=== PATIENT | male | born 1970 | race Two or more races ===

== ENCOUNTER 2017-04-01 13:34 | Inpatient (IN) | payer MEDICAID ==
[~2017-04-01] VITALS: Ht 170.2 cm; Wt 72.6 kg
[2017-04-01] MEDS ORDERED: NKM (13:37)
[2017-04-01] MEDS ORDERED: Norco 5mg/325mg tab ORAL ONE (14:00)
[2017-04-01] MEDS ORDERED: Morphine Sulfate 4mg/ml Inj IVP ONE (14:45)
--- NOTE | 2017-04-01 15:11 | Diagnostic Imaging Report ---
Indications: Fall from ladder, right hip/thigh injury and pain Technique: 2 views right thigh Findings: Comparison: None Is a comminuted fracture involving the intertrochanteric region of the right femur, mildly displaced. No underlying lytic destructive process. Significant amount of linear artifact overlies the pelvis. No dislocation, joint space widening, or other acute change identified. IMPRESSION: Right femoral intertrochanteric fracture Additional nondisplaced pelvic fractures not excludable, due to artifact described
[2017-04-01 15:15] VITALS: BP 127/81
--- NOTE | 2017-04-01 15:24 | Diagnostic Imaging Report ---
Indications: Fall from ladder, right hip trauma and pain Technique: Continuous helical CT imaging of the pelvis was performed with automatic exposure control on a Siemens sensation [address] scanner. Axial, coronal, sagittal images reconstructed at 3 mm slice thickness. CTDI volume(s): 10 mGy Total DLP: 284 mGy-cm Findings: Comparison: Right thigh radiographs performed earlier today There is a comminuted fracture of involving the intertrochanteric region of the right femur with mild displacement of multiple fragments. No underlying lytic destructive process demonstrated. Surrounding soft tissues are mildly swollen. No additional fracture, dislocation, joint space widening, soft tissue gas or hematoma, or other acute change identified. The L5 vertebra demonstrates bilateral pars interarticularis defects. The L5-S1 disc space demonstrates annular bulge with marginal osteophyte formation and discogenic sclerosis. The L4-5 and L5-S1 facet joints are sclerotic and hypertrophied. Bilateral sacroiliac joints demonstrate marginal irregularity and sclerosis. The wall of the urinary bladder appears mildly thickened. Small left inguinal hernia contains only fat. IMPRESSION: Right femoral intertrochanteric fracture as described No other evidence of acute injury Degenerative spondylosis L5 bilateral spondylolysis. No associated spondylolisthesis. Bilateral sacroiliac arthropathy, nonspecific. Consider degenerative arthropathy, seronegative spondyloarthropathies Small fat-containing left inguinal hernia
[2017-04-01 15:39] LABS: BASOPHILS % (AUTO) 0.7 % (0.0-2.0); EOSINOPHILS % (AUTO) 0.8 % (0.0-3.0); INR 0.9 (0.9-1.1); LYMPHOCYTES % (AUTO) 13.4 % (20.0-45.0); MEAN CORPUSCULAR HEMOGLOBIN 28.6 PG (27.0-31.0); MEAN CORPUSCULAR HGB CONC 32.7 G/DL (32.0-36.0); MEAN CORPUSCULAR VOLUME 88 FL (80-99); MEAN PLATELET VOLUME 7.7 FL (6.5-10.1); MONOCYTES % (AUTO) 7.4 % (1.0-10.0); NEUTROPHILS % (AUTO) 77.7 % (45.0-75.0); PLATELET COUNT 262 K/UL (150-450); PROTHROMBIN TIME 9.8 SEC (9.30-11.50); RED BLOOD COUNT 5.39 M/UL (4.70-6.10); RED CELL DISTRIBUTION WIDTH 12.3 % (11.6-14.8); WHITE BLOOD COUNT 15.2 K/UL (4.8-10.8)
[2017-04-01 15:45] LABS: ALANINE AMINOTRANSFERASE 22 U/L (3-41); ALBUMIN/GLOBULIN RATIO 0.9 (1.0-2.7); ANION GAP 18 (5-15); ASPARTATE AMINO TRANSFERASE 31 U/L (5-40); CALCIUM 8.6 mg/dL (8.6-10.2); CARBON DIOXIDE 22 mEQ/L (20-30); CHLORIDE 96 mEQ/L (98-107); CREATININE 0.7 mg/dL (0.7-1.2); GLOMERULAR FILTRATION RATE > 60 mL/min (>60); HEMOLYSIS 2; POTASSIUM 3.9 mEQ/L (3.4-4.9); SODIUM 136 mEQ/L (135-145); TOTAL PROTEIN 7.9 g/dL (6.6-8.7)
--- NOTE | 2017-04-01 16:19 | Consultation ---
Consult Note Consult Note patient seen/evaluated. Right Hip Fracture (IT) Plan on ORIF tomorrow afternoon. NPO/Consent obtained from the patient and EKG/PT/PTT/CBC/Chest Xray ordered thank you RAUDEL HAM Apr 01, 2017 16:19
[2017-04-01] MEDS ORDERED: ceFAZolin sod 1 GM in D5W 55 ML IV ONE (16:30)
[2017-04-01] MEDS ORDERED: NS 55 ML IV ONE (16:45)
[2017-04-01] MEDS ORDERED: Tubing IV Cassette IV ONE (16:45)
--- NOTE | 2017-04-01 17:18 | Diagnostic Imaging Report ---
Indication: Shortness of breath Technique: Single portable AP view of the chest. Findings: Comparison: None. The bones and extra pulmonary soft tissues, cardiomediastinal silhouette, pulmonary vasculature and parenchyma, and pleural surfaces are unremarkable. IMPRESSION: Negative portable AP chest.
--- NOTE | 2017-04-01 17:53 | Emergency Room Report ---
History of Present Illness General Chief Complaint: Multiple Trauma/Fall Source: EMS Present Illness HPI 46-year-old M presents to ED complaining of right hip pain. Patient states he had a fall from a ladder today. Approximately 5 feet high. End on his right side. Denies hitting his head or LOC. Patient is here complaining of right hip pain. 10 out of 10. Sharp. Nonradiating. Unable to bear weight. No other aggravating or relieving factors. Denies any other associated symptoms Allergies: Coded Allergies: No Known Allergies (Unverified , 04/01/17) Patient History Past Medical History: none Past Surgical History: none Pertinent Family History: none Social History: Denies: alcohol use, drug use, smoking Immunizations: UTD Reviewed Nursing Documentation: PMH: Agreed, PSxH: Agreed Nursing Documentation-PMH Past Medical History: No Stated History Review of Systems All Other Systems: negative except mentioned in HPI Physical Exam Vital Signs Date Time Temp Pulse Resp B/P Pulse Ox O2 Delivery O2 Flow Rate FiO2 04/01/17 13:33 98.2 100 18 138/88 100 Room Air Sp02 EP Interpretation: reviewed, normal General Appearance: no apparent distress, alert, GCS 15, non-toxic Head: normocephalic Eyes: bilateral eye PERRL, bilateral eye normal inspection ENT: normal ENT inspection Neck: normal inspection Respiratory: normal inspection Cardiovascular #1: normal inspection Gastrointestinal: normal inspection Rectal: deferred Genitourinary: no CVA tenderness Musculoskeletal: decreased range of motion, tender - R hip Neurologic: alert, oriented x3, responsive, motor strength/tone normal, sensory intact, speech normal Psychiatric: normal inspection Skin: normal inspection Lymphatic: normal inspection Medical Decision Making Diagnostic Impression: Primary Impression: Intertrochanteric fracture of right hip Qualified Codes: S72.141A - Displaced intertrochanteric fracture of right femur, initial encounter for closed fracture Additional Impression: Fall from ladder Qualified Codes: W11.XXXA - Fall on and from ladder, initial encounter ER Course Hospital Course 46-year-old male presents to ED with R hip pain s/p fall from ladder Differential diagnoses include: fracture, dislocation, contusion Clinical course Patient placed on stretcher. After initial history and physical I ordered labs , pain medication and imaging studies Labs reviewed-mild leukocytosis noted, electrolytes okay, hemoglobin/hematocrit okay Femur x-ray shows R intertrochanteric fracture CT Pelvis shows R intertrochanteric fx EKG - NSR, no acute changes interpreted by me Case discussed with Dr. Mason who agreed to consult on this case. Case discussed with Dr. Jung who agreed to accept the patient to his service for further care and support i. I feel this is a highly complex case requiring extensive working including EKG/Rhythm strip, Xray/CT/US, Blood/urine lab work, repeat exams while in ED, and administration of strong opiates/narcotics for pain control, admission to hospital or close patient follow up. Diagnosis - intertrochanteric fracture, fall from ladder Admitted to floor in serious condition Labs Test 04/01/17 15:00 White Blood Count 15.2 K/UL (4.8-10.8) Red Blood Count 5.39 M/UL (4.70-6.10) Hemoglobin 15.4 G/DL (14.2-18.0) Hematocrit 47.2 % (42.0-52.0) Mean Corpuscular Volume 88 FL (80-99) Mean Corpuscular Hemoglobin 28.6 PG (27.0-31.0) Mean Corpuscular Hemoglobin Concent 32.7 G/DL (32.0-36.0) Red Cell Distribution Width 12.3 % (11.6-14.8) Platelet Count 262 K/UL (150-450) Mean Platelet Volume 7.7 FL (6.5-10.1) Neutrophils (%) (Auto) 77.7 % (45.0-75.0) Lymphocytes (%) (Auto) 13.4 % (20.0-45.0) Monocytes (%) (Auto) 7.4 % (1.0-10.0) Eosinophils (%) (Auto) 0.8 % (0.0-3.0) Basophils (%) (Auto) 0.7 % (0.0-2.0) Prothrombin Time 9.8 SEC (9.30-11.50) Prothromb Time International Ratio 0.9 (0.9-1.1) Activated Partial Thromboplast Time 28 SEC (23-33) Sodium Level 136 mEQ/L (135-145) Potassium Level 3.9 mEQ/L (3.4-4.9) Chloride Level 96 mEQ/L (98-107) Carbon Dioxide Level 22 mEQ/L (20-30) Anion Gap 18 (5-15) Blood Urea Nitrogen 5 mg/dL (7-23) Creatinine 0.7 mg/dL (0.7-1.2) Estimat Glomerular Filtration Rate > 60 mL/min (>60) Glucose Level 116 mg/dL (74-106) Calcium Level 8.6 mg/dL (8.6-10.2) Total Bilirubin 0.4 mg/dL (0.0-1.2) Aspartate Amino Transf (AST/SGOT) 31 U/L (5-40) Alanine Aminotransferase (ALT/SGPT) 22 U/L (3-41) Alkaline Phosphatase 126 U/L (40-129) Total Protein 7.9 g/dL (6.6-8.7) Albumin 3.9 g/dL (3.5-5.2) Globulin 4.0 g/dL Albumin/Globulin Ratio 0.9 (1.0-2.7) EKG Diagnostic Results Rate: normal Rhythm: NSR ST Segments: no acute changes ASA given to the pt in ED: No Rhythm Strip Diag. Results EP Interpretation: yes Rhythm: NSR, no PVC's, no ectopy Other X-Ray Diagnostic Results # of Views/Limited Vs Complete: 3 View Interpretation: no dislocation, other - R intertrochanteric fx, no dislocation Indication: Pain Impression: Other - R intertrochanteric fx Date Electronically Signed: Apr 01, 2017 Time Electronically Signed: 17:50 Interpreting ER Physician: Guy Street mD CT/MRI/US Diagnostic Results CT/MRI/US Diagnostic Results : Imaging Test Ordered: CT Pelvis Impression R intertrochanteric fx Last Vital Signs Date Time Temp Pulse Resp B/P Pulse Ox O2 Delivery O2 Flow Rate FiO2 04/01/17 17:27 98.2 64 16 127/81 98 Room Air Status: improved Disposition: ADMITTED INPATIENT Condition: Serious Referrals: NOT CHOSEN IPA/,REFERRING (PCP) GYU STREET M.D. Apr 01, 2017 17:53
[2017-04-01 18:29] VITALS: BP 136/91
--- NOTE | 2017-04-01 18:45 | Consultation ---
DATE OF CONSULTATION: 04/01/2017 ORTHOPEDIC CONSULTATION CONSULTING PHYSICIAN: Liban Gregory M.D. REFERRING PHYSICIAN: Livier Jung M.D. REASON FOR CONSULTATION: Right hip fracture. BRIEF HISTORY: The patient is a pleasant 46-year-old gentleman who was up on the ladder at home. He was trying to put some shades up for his kids that were playing outside. He fell down and landed on his right hip. He did not hit his head. There was no loss of consciousness. He was admitted to [facility]. X-ray showed a comminuted right hip intertrochanteric fracture. A CT of the pelvis was obtained, which did not show any other fracture. An orthopedic consultation was obtained. PAST MEDICAL HISTORY: Significant for none. PAST SURGICAL HISTORY: He has had some finger lacerations for which he had surgery on the left side. He has been functional. ALLERGIES: No known drug allergies. SOCIAL HISTORY: He does smoke marijuana occasionally and he drinks about 3 or 4 beers a day. He lives in a single story with 2 or 3 stairs to get into. He has a supportive . FAMILY HISTORY: Noncontributory. ANESTHESIA DIFFICULTIES: None. PHYSICAL EXAMINATION: GENERAL: Physical examination of the patient does reveal a pleasant gentleman, cooperative with examination. EXTREMITIES: Examination of the right hip revealed that he has got significant pain. His leg is slightly shortened and externally rotated. He has got tenderness over the area. He has got no tenderness over the spine. He has no tenderness over the neck. He is alert and oriented. His is at bedside. DIAGNOSTIC DATA: X-rays of the right hip and femur are reviewed. There is evidence of right comminuted intertrochanteric fracture. CT of the pelvis reviewed. There is a right intertrochanteric fracture. There is no other additional pelvic fracture that could be seen. IMPRESSION: Right hip intertrochanteric fracture in a 46-year-old gentleman after a mechanical fall. PLAN: Open reduction and internal fixation with a short gamma nail. Risks, benefits, and complications of surgery were discussed with him. Risks of infection, bleeding, and neurovascular complication were discussed with them. He understands the risks of surgery and complications of surgery, and would like to proceed with it. All questions were answered. We will go ahead and proceed once we have time in the OR. Liban Gregory M.D. DR: MEEK JOB#: [id number] CC:
[2017-04-01 20:00] VITALS: BP 128/76
[2017-04-02] VITALS (13 sets, daily range): BP systolic 100–136; BP diastolic 69–80
[2017-04-02] MEDS ORDERED: Morphine Sulfate PF 10 ML ONE (15:53)
[2017-04-02] MEDS ORDERED: Bupivacaine 0.5% Inj 30 ml vial INJ ONE (15:54)
--- NOTE | 2017-04-02 16:03 | Anethesia Preoperative Eval ---
Anesthesia Pre-op PMH/ROS General Date of Evaluation: Apr 02, 2017 Time of Evaluation: 16:46 Anesthesiologist: Nikos ASA Score: ASA 2 Mallampati Score Class I : Soft palate, uvula, fauces, pillars visible Class II: Soft palate, uvula, fauces visible Class III: Soft palate, base of uvula visible Class IV: Only hard plate visible Mallampati Classification: Class II Surgeon: Colt Diagnosis: R Hip Fx Surgical Procedure: ORIF R Hip Anesthesia History: none Social History: current smoker Family History: no anesthesia problems Allergies: Coded Allergies: No Known Allergies (Unverified , 04/01/17) Medications: see eMAR Anesthesia Pre-op Phys. Exam Physician Exam Last Vital Signs Date Time Temp Pulse Resp B/P Pulse Ox O2 Delivery O2 Flow Rate FiO2 04/02/17 15:54 98.1 81 18 131/74 Room Air 04/02/17 11:18 97 Constitutional: NAD Neurologic: CN 2-12 intact Cardiovascular: RRR Respiratory: CTA Gastrointestinal: S/NT/ND Airway Exam Mallampati Score: Class II MO: full ROM: full Teeth: intact Anesthesia Pre-op A/P Risk Assessment & Plan Assessment: ASA 2 Plan: Spinal, GA, BIS Status Change Before Surgery: No Pre-Antibiotics Dru Gram Ancef IV Given Within 1 Hr of Incision: Yes Time Given: 17:04 Padilla Knott MD Apr 02, 2017 16:03
[2017-04-02] MEDS ORDERED: LR 1000ml 1,000 ML IVLG SCH (16:04)
--- NOTE | 2017-04-02 16:05 | Immediate Post-Op Evaluation ---
Immediate Post-Op Evalulation Immediate Post-Op Evalulation Procedure: ORIF R Hip Date of Evaluation: Apr 02, 2017 Time of Evaluation: 18:30 IV Fluids: 500 LR Blood Products: 0 Estimated Blood Loss: 50 Urinary Output: 300 Blood Pressure Systolic: 100 Blood Pressure Diastolic: 70 Pulse Rate: 94 Respiratory Rate: 16 O2 Sat by Pulse Oximetry: 100 Temperature (Fahrenheit): 97.2 Pain Score (1-10): 1 Nausea: No Vomiting: No Complications 0 Patient Status: awake, reacts, patent, extubated, none Hydration Status: adequate Dru Gram Ancef IV Given Within 1 Hr of Incision: Yes Time Given: 17:04 Padilla Knott MD Apr 02, 2017 16:05
[2017-04-02] MEDS ORDERED: DiphenhydrAMINE 50mg/ml Inj IVP PRN (16:15)
[2017-04-02] MEDS ORDERED: Ketorolac 60mg Inj IV PRN (16:15)
[2017-04-02] MEDS ORDERED: fentaNYL 100 mcg/2 mL IV PRN (16:15)
[2017-04-02] MEDS ORDERED: Hydromorphone 0.5mg/0.5ml inj IVP PRN (16:15)
[2017-04-02] MEDS ORDERED: LORazepam Inj 2mg/ml 1ml IV PRN (16:15)
[2017-04-02] MEDS ORDERED: Midazolam 2mg/2ml Inj IVP PRN (16:15)
[2017-04-02] MEDS ORDERED: Metoclopramide 10mg/2ml Inj IVP PRN (16:15)
[2017-04-02] MEDS ORDERED: Meperidine 25mg/0.5ml Inj IV PRN (16:15)
[2017-04-02] MEDS ORDERED: Norco 5mg/325mg tab ORAL PRN ×2 (16:15→17:30)
[2017-04-02] MEDS ORDERED: Norco 7.5mg/325mg tab ORAL PRN (16:15)
[2017-04-02] MEDS ORDERED: Atropine Inj 1mg/10ml Syr IV PRN (16:15)
[2017-04-02] MEDS ORDERED: Oxycodone/Acetaminophen 5-325 ORAL PRN (16:15)
[2017-04-02] MEDS ORDERED: Ketorolac 30mg Inj IV PRN (16:15)
[2017-04-02] MEDS ORDERED: Bacitracin 50000 Units Vial ONE (16:22)
[2017-04-02] MEDS ORDERED: LR 1000ml ONE (16:45)
[2017-04-02] MEDS ORDERED: Alfentanil 2ml Inj ONE (16:45)
[2017-04-02] MEDS ORDERED: Lidocaine 1% MPF 10mg/ml 5ml ONE (16:45)
[2017-04-02] MEDS ORDERED: NS Irrig 1000ml ONE (16:45)
[2017-04-02] MEDS ORDERED: Lidocaine 1% Plain 30 ml INJ ONE (16:45)
[2017-04-02] MEDS ORDERED: Sterile Water Irrig 1000ml IRRIG ONE (16:45)
[2017-04-02] MEDS ORDERED: Propofol 10mg/ml 20ml IV ONE (16:45)
--- NOTE | 2017-04-02 17:14 | Pre-Procedure Note/Attestation ---
Pre-Procedure Note/Attestation Complete Prior to Procedure Planned Procedure: right Procedure Narrative: rt hip orif Indications for Procedure Pre-Operative Diagnosis: rt hip fracture Attestation I attest that I discussed the nature of the procedure; its benefits; risks and complications; and alternatives (and the risks and benefits of such alternatives ), prior to the procedure, with the patient (or the patient's legal vendor representatives). I attest that, if there was a reasonable possibility of needing a blood transfusion, the patient (or the patient's legal vendor representatives) was given the [facility] standardized written summary, pursuant to the [place] Adolfo Blood Safety Act ([place] Health and Safety Code # 1645, as amended). I attest that I re-evaluated the patient just prior to the surgery and that there has been no change in the patient's H&P, except as documented below:NONE RAUDEL HAM Apr 02, 2017 17:14
[2017-04-02] MEDS ORDERED: Milk of Magnesia 30ml Ud ORAL PRN (17:30)
[2017-04-02] MEDS ORDERED: HYDROmorphone 1mg/ml Carpuject SUBQ PRN (17:30)
--- NOTE | 2017-04-02 18:02 | Brief Operative Note ---
Immediate Post Operative Note Operative Note Pre-op Diagnosis: rt hip fracture Procedure: Right hip ORIF with short gamma nail Post-op Diagnosis: same as pre-op Surgeon: tessa Applications Processor: Kandi Anesthesiologist: Bebo Anesthesia: regional Specimen: none Complications: none Condition: stable Estimated Blood Loss: volume - 100cc Drains: none Implant(s) used?: Yes - Viviana Gamma Nail RAUDEL HAM Apr 02, 2017 18:02
--- NOTE | 2017-04-02 19:15 | Cardiology Progress Note ---
Assessment/Plan Assessment/Plan The patient is seen and examined, full consult note will be dictated. Objective Last 24 Hour Vital Signs Date Time Temp Pulse Resp B/P Pulse Ox O2 Delivery O2 Flow Rate FiO2 04/02/17 18:50 84 19 120/80 99 Room Air 04/02/17 18:40 82 17 117/76 100 Simple Mask 04/02/17 18:30 90 20 104/72 99 Simple Mask 04/02/17 18:22 94 16 100 04/02/17 18:20 97.2 94 16 100/70 100 Simple Mask 04/02/17 15:54 98.1 81 18 131/74 Room Air 04/02/17 11:18 98.1 78 19 129/78 97 Room Air 04/02/17 09:36 97.9 04/02/17 08:10 97.9 69 18 121/75 96 Room Air 04/02/17 04:00 98.1 65 18 136/80 97 Room Air 04/02/17 00:00 97.9 69 16 119/72 95 Room Air 04/01/17 20:00 98.2 73 18 128/76 95 Room Air Intake and Output 04/01/17 04/02/17 19:00 07:00 Intake Total 75 ml 875 ml Output Total 950 ml Balance 75 ml -75 ml Intake IV Total 75 ml 875 ml Output Urine Total 950 ml JAMEY WONG Apr 02, 2017 19:15
[2017-04-02] MEDS ORDERED: D5 1/2NS w/KCl 20mEq 1,000 ML IV SCH (21:00)
[2017-04-02] MEDS: oxyCONTIN 20mg tab ORAL SCH (21:14)
[2017-04-02] MEDS: Docusate 100mg cap ORAL SCH (21:14)
--- NOTE | 2017-04-02 22:30 | History and Physical Report ---
DATE OF ADMISSION: 04/01/2017 HISTORY OF PRESENT ILLNESS: The patient comes in status post fall with right femur fracture, fall from a ladder. The patient denies shortness of breath. Denies chest pain. Denies nausea, vomiting or diarrhea. Denies fever or chills. Denies cough. Denies headache. Denies any diarrhea. Denies any rectal bleeding. He does have a heartburn. Denies fever or chills. Denies hemoptysis. Denies any medical problems. Also, the patient complained of right hip pain as well as complains of right knee pain. This is from that fall from the ladder. PAST MEDICAL HISTORY: None. PAST SURGICAL HISTORY: Finger surgery. MEDICATIONS: None. ALLERGIES: None. SOCIAL HISTORY: The patient has a history of smoking and history of drug abuse. No history of alcohol abuse. FAMILY HISTORY: Noncontributory. REVIEW OF SYSTEMS: HEENT: Denies headache. Respiratory: Denies shortness of breath. Denies cough. Cardiovascular: Denies chest pain. Gastrointestinal: Denies nausea, vomiting, or diarrhea. Extremities: He does have pain in the right femur as well as right knee. Central Nervous System: Denies change in vision or speech pattern. PHYSICAL EXAMINATION: VITAL SIGNS: stable. HEENT: PERRLA. NECK: Supple. No lymphadenopathy. CHEST: Clear to auscultation. GASTROINTESTINAL: Soft, nontender, and nondistended. No organomegaly. EXTREMITIES: No edema. Moves all four extremities except decreased range of motion on the right hip due to pain. NEUROLOGIC: Cranial nerves II through XII are intact. Oriented x3. LABORATORY AND DIAGNOSTIC DATA: Labs are significant for WBC of of 15. ASSESSMENT AND PLAN: 1. Leukocytosis, could be due to fracture. 2. Status post right hip fracture. I have asked Dr. Sousa to see the patient for leukocytosis and Dr. William will be in-charge of clearing for surgery and Dr. Rodriguez also seen the patient for possible dehydration. Livier Jung M.D. DR: FRAN JOB#: [id number] CC:
[2017-04-03] VITALS: BP 115/66
--- NOTE | 2017-04-03 00:15 | Operative Note - Dictated ---
DATE OF OPERATION: 04/02/2017 PREOPERATIVE DIAGNOSIS: Right hip comminuted intertrochanteric fracture. POSTOPERATIVE DIAGNOSIS: Right hip comminuted intertrochanteric fracture. PROCEDURE: Right hip open reduction and internal fixation using a short 125-degree gamma nail. SURGEON: Liban Gregory M.D. GO CART MECHANIC: Julio Schroeder ANESTHESIA: Spinal anesthesia by Dr. Knott. ANESTHESIOLOGIST: Padilla Knott M.D. EBL: Less than 100 mL. COMPLICATIONS: None. BRIEF HISTORY: The patient is a 46-year-old gentleman who sustained a fall from a ladder and landed on his right hip. He was seen in the ER and was noted to have a right hip comminuted intertrochanteric fracture. He was admitted after full discussion of risks and benefits of the surgery with the patient including risk of infection, bleeding, neurovascular complication, possibility of malunion and nonunion, possibility of need for further surgery, as well as other complications that may arise that are unforeseen and he opted for surgical treatment as described above. OPERATIVE PROCEDURE: The patient was brought to the operating table and was placed supine. Spinal anesthesia was induced. The patient was placed on a fracture table and the right leg was placed in traction and then the leg was placed in a well leg clemens. All pressure points were well padded. The right hip was reduced, and using image intensifier, the position of the fracture was checked and the fracture was reduced with traction and internal rotation. The reduction was checked on AP and lateral with the image intensifier. At this point, the right hip was prepped and draped in the usual sterile fashion. A small incision was made over the proximal aspect of the greater trochanter. Incision was taken through the gluteal fascia. The greater trochanter could be palpated. At this point, a guide pin was placed through the trochanter into the metaphyseal and across the fracture site. The position was checked on AP and lateral, and appeared to be perfect. At this point, the proximal reaming was performed and a short 125-degree gamma nail was then placed in. The position of the nail was checked in AP and lateral, and appeared to be perfect and intramedullarily. At this point, using the guide, a guide pin was placed through the lateral cortex of the femur into the neck, into the head of the femur in the central location. Once this was performed, measurements were made. Initially 105 mm screw was used, which was long. Therefore, this was exchanged for a 100 mm screw. A lag screw was placed in without any complications. This across the fracture site and was in the location on AP and lateral. Once this was accomplished, the screw was then locked in with a locking screw and a locking screw was backed up by half a turn to allow for compression. The wounds were thoroughly irrigated. The guide pin was removed. The guide for the nail was then removed as well. Wounds were thoroughly irrigated. Final x-rays were obtained on AP and lateral, and the fracture was reduced anatomically on AP and lateral, and the nail and the lag screws were in perfect position. The screw was just subchondral and it was intramedullarily in the femoral head. At this point, the gluteal fascia was closed using #1 Vicryl suture. Subcutaneous tissue was closed using 2-0 Vicryl suture. Skin was closed using 3-0 Monocryl suture. All lap counts and instrument counts were correct. The patient was taken off the traction and off the table, and was taken to recovery room in stable condition. Liban Gregory M.D. DR: MEEK JOB#: [id number] CC:
[2017-04-03] MEDS: ceFAZolin sod 2 GM in D5W 110 ML IV SCH ×2 (00:28→07:55)
[2017-04-03 04:00] VITALS: BP 124/76
[2017-04-03 07:05] LABS: ANION GAP 17 (5-15); CALCIUM 8.1 mg/dL (8.6-10.2); CARBON DIOXIDE 23 mEQ/L (20-30); CHLORIDE 94 mEQ/L (98-107); CREATININE 0.7 mg/dL (0.7-1.2); GLOMERULAR FILTRATION RATE > 60 mL/min (>60); HEMOLYSIS 2; POTASSIUM 3.9 mEQ/L (3.4-4.9); SODIUM 134 mEQ/L (135-145)
[2017-04-03 07:16] LABS: BASOPHILS % (AUTO) 0.7 % (0.0-2.0); EOSINOPHILS % (AUTO) 0.1 % (0.0-3.0); MEAN CORPUSCULAR HGB CONC 33.3 G/DL (32.0-36.0); MEAN CORPUSCULAR VOLUME 90 FL (80-99); MEAN PLATELET VOLUME 7.9 FL (6.5-10.1); MONOCYTES % (AUTO) 10.3 % (1.0-10.0); PLATELET COUNT 158 K/UL (150-450); RED BLOOD COUNT 4.12 M/UL (4.70-6.10); RED CELL DISTRIBUTION WIDTH 11.8 % (11.6-14.8); WHITE BLOOD COUNT 12.3 K/UL (4.8-10.8)
[2017-04-03] MEDS: Docusate 100mg cap ORAL SCH ×3 (07:55→17:54)
[2017-04-03] MEDS: celeBREX 200mg Cap **SURGERY PATIENTS ONLY ORAL SCH (07:55)
[2017-04-03] MEDS: oxyCONTIN 20mg tab ORAL SCH ×2 (07:55→22:34)
[2017-04-03 07:57] VITALS: BP 135/84
[2017-04-03] MEDS: Enoxaparin 40mg Inj SUBQ SCH (07:59)
--- NOTE | 2017-04-03 08:33 | Orthopedic Progress Note ---
Orthopedic - Progress Note Subjective Symptoms: improved Objective Vital Signs Laboratory Tests Test 04/03/17 06:05 White Blood Count 12.3 K/UL (4.8-10.8) H Red Blood Count 4.12 M/UL (4.70-6.10) L Hemoglobin 12.4 G/DL (14.2-18.0) L Hematocrit 37.1 % (42.0-52.0) L Mean Corpuscular Volume 90 FL (80-99) Mean Corpuscular Hemoglobin 30.0 PG (27.0-31.0) Mean Corpuscular Hemoglobin Concent 33.3 G/DL (32.0-36.0) Red Cell Distribution Width 11.8 % (11.6-14.8) Platelet Count 158 K/UL (150-450) Mean Platelet Volume 7.9 FL (6.5-10.1) Neutrophils (%) (Auto) 71.0 % (45.0-75.0) Lymphocytes (%) (Auto) 18.0 % (20.0-45.0) L Monocytes (%) (Auto) 10.3 % (1.0-10.0) H Eosinophils (%) (Auto) 0.1 % (0.0-3.0) Basophils (%) (Auto) 0.7 % (0.0-2.0) Sodium Level 134 mEQ/L (135-145) L Potassium Level 3.9 mEQ/L (3.4-4.9) Chloride Level 94 mEQ/L (98-107) L Carbon Dioxide Level 23 mEQ/L (20-30) Anion Gap 17 (5-15) H Blood Urea Nitrogen 8 mg/dL (7-23) Creatinine 0.7 mg/dL (0.7-1.2) Estimat Glomerular Filtration Rate > 60 mL/min (>60) Glucose Level 105 mg/dL (74-106) Calcium Level 8.1 mg/dL (8.6-10.2) L Last 24 Hour Vital Signs Date Time Temp Pulse Resp B/P Pulse Ox O2 Delivery O2 Flow Rate FiO2 04/03/17 07:57 98.4 88 20 135/84 95 Room Air 04/03/17 04:00 98.6 91 18 124/76 96 Room Air 04/03/17 00:00 98.2 101 18 115/66 96 Room Air 04/02/17 21:30 98.1 82 18 111/74 97 Room Air 04/02/17 20:30 98.1 93 18 124/69 97 Room Air 04/02/17 19:20 97.2 75 15 115/79 99 Room Air 04/02/17 19:00 79 14 116/78 99 Room Air 04/02/17 18:50 84 19 120/80 99 Room Air 04/02/17 18:40 82 17 117/76 100 Simple Mask 04/02/17 18:30 90 20 104/72 99 Simple Mask 04/02/17 18:22 94 16 100 04/02/17 18:20 97.2 94 16 100/70 100 Simple Mask 04/02/17 15:54 98.1 81 18 131/74 Room Air 04/02/17 11:18 98.1 78 19 129/78 97 Room Air 04/02/17 09:36 97.9 I&O Intake and Output 04/02/17 04/03/17 19:00 07:00 Intake Total 525 ml 995 ml Output Total 710 ml Balance 525 ml 285 ml Intake Oral 240 ml IV Total 525 ml 755 ml Output Urine Total 700 ml Estimated Blood Loss 10 ml # Voids 2 Wound: clean, dry, intact Drains: none Neuro Status: normal Vascular Status: normal Additional Comments Xray reviewed- good reduction/fixation Assessment Post-op Diagnosis POD 1 Rt hip ORIF Plan Plan: PT, discharge plan - fu as outpt AMANDEEP CULVER Apr 03, 2017 08:33
--- NOTE | 2017-04-03 11:31 | Diagnostic Imaging Report ---
Indications: Open reduction and internal fixation of right femoral intertrochanteric fracture Technique: Portable postoperative AP view of the pelvis at 1843 Findings: Comparison: Intraoperative imaging performed earlier today Intramedullary gianfranco and dynamic screw have been placed across the intertrochanteric fracture of the right femur. Main fragments are anatomically aligned. Overlying soft tissues are swollen with gas. Miranda catheter in place. Upper pelvis excluded from image. IMPRESSION: ORIF right femoral intertrochanteric fracture
--- NOTE | 2017-04-03 11:51 | General Progress Note ---
Assessment/Plan Problem List: (1) Fall from ladder ICD Codes: W11.XXXA - Fall on and from ladder, initial encounter SNOMED: 91691464, [id number] Qualifiers: Qualified Codes: W11.XXXA - Fall on and from ladder, initial encounter (2) Intertrochanteric fracture of right hip ICD Codes: S72.141A - Displaced intertrochanteric fracture of right femur, initial encounter for closed fracture SNOMED: 743860339, [id number] Qualifiers: Qualified Codes: S72.141A - Displaced intertrochanteric fracture of right femur, initial encounter for closed fracture Status: progressing Assessment/Plan dc planning per ortho afebrile s/p orif Subjective Allergies: Coded Allergies: No Known Allergies (Unverified , 04/01/17) Subjective pain at surgical site Objective Last 24 Hour Vital Signs Date Time Temp Pulse Resp B/P Pulse Ox O2 Delivery O2 Flow Rate FiO2 04/03/17 08:54 98.4 04/03/17 07:57 98.4 88 20 135/84 95 Room Air 04/03/17 04:00 98.6 91 18 124/76 96 Room Air 04/03/17 00:00 98.2 101 18 115/66 96 Room Air 04/02/17 21:30 98.1 82 18 111/74 97 Room Air 04/02/17 20:30 98.1 93 18 124/69 97 Room Air 04/02/17 19:20 97.2 75 15 115/79 99 Room Air 04/02/17 19:00 79 14 116/78 99 Room Air 04/02/17 18:50 84 19 120/80 99 Room Air 04/02/17 18:40 82 17 117/76 100 Simple Mask 04/02/17 18:30 90 20 104/72 99 Simple Mask 04/02/17 18:22 94 16 100 04/02/17 18:20 97.2 94 16 100/70 100 Simple Mask 04/02/17 15:54 98.1 81 18 131/74 Room Air Intake and Output 04/02/17 04/03/17 19:00 07:00 Intake Total 525 ml 995 ml Output Total 710 ml Balance 525 ml 285 ml Intake Oral 240 ml IV Total 525 ml 755 ml Output Urine Total 700 ml Estimated Blood Loss 10 ml # Voids 2 Laboratory Tests 04/03/17 06:05: White Blood Count 12.3H, Red Blood Count 4.12L, Hemoglobin 12.4L, Hematocrit 37.1L, Mean Corpuscular Volume 90, Mean Corpuscular Hemoglobin 30.0, Mean Corpuscular Hemoglobin Concent 33.3, Red Cell Distribution Width 11.8, Platelet Count 158, Mean Platelet Volume 7.9, Neutrophils (%) (Auto) 71.0, Lymphocytes (% ) (Auto) 18.0L, Monocytes (%) (Auto) 10.3H, Eosinophils (%) (Auto) 0.1, Basophils (%) (Auto) 0.7, Sodium Level 134L, Potassium Level 3.9, Chloride Level 94L, Carbon Dioxide Level 23, Anion Gap 17H, Blood Urea Nitrogen 8, Creatinine 0.7, Estimat Glomerular Filtration Rate > 60, Glucose Level 105, Calcium Level 8.1L Height (Feet): 5 Height (Inches): 7.00 Weight (Pounds): 160 Cardiovascular: normal rate Respiratory/Chest: lungs clear Abdomen: soft Livier Jung MD Apr 03, 2017 11:51
[2017-04-03 12:30] VITALS: BP 128/82
[2017-04-03 16:15] VITALS: BP 142/79
[2017-04-03] MEDS: Norco 7.5mg/325mg tab ORAL PRN (17:54)
--- NOTE | 2017-04-03 18:25 | Cardiology Progress Note ---
Assessment/Plan Assessment/Plan 1. Sinus tachycardia, post day #1, keep hydrated, pain management. No need for AV flori agents. 2. s/p right hip ORIF POD #1, no perioperative cardiac events. Subjective Subjective No cardiac events. Objective Last 24 Hour Vital Signs Date Time Temp Pulse Resp B/P Pulse Ox O2 Delivery O2 Flow Rate FiO2 04/03/17 16:15 98.1 80 20 142/79 99 Room Air 04/03/17 12:30 97.6 78 20 128/82 97 Room Air 04/03/17 08:54 98.4 04/03/17 07:57 98.4 88 20 135/84 95 Room Air 04/03/17 04:00 98.6 91 18 124/76 96 Room Air 04/03/17 00:00 98.2 101 18 115/66 96 Room Air 04/02/17 21:30 98.1 82 18 111/74 97 Room Air 04/02/17 20:30 98.1 93 18 124/69 97 Room Air 04/02/17 19:20 97.2 75 15 115/79 99 Room Air 04/02/17 19:00 79 14 116/78 99 Room Air 04/02/17 18:50 84 19 120/80 99 Room Air 04/02/17 18:40 82 17 117/76 100 Simple Mask 04/02/17 18:30 90 20 104/72 99 Simple Mask 04/02/17 18:22 94 16 100 04/02/17 18:20 97.2 94 16 100/70 100 Simple Mask Intake and Output 04/02/17 04/03/17 19:00 07:00 Intake Total 525 ml 995 ml Output Total 710 ml Balance 525 ml 285 ml Intake Oral 240 ml IV Total 525 ml 755 ml Output Urine Total 700 ml Estimated Blood Loss 10 ml # Voids 2 Laboratory Tests Test 04/03/17 06:05 White Blood Count 12.3 K/UL (4.8-10.8) H Red Blood Count 4.12 M/UL (4.70-6.10) L Hemoglobin 12.4 G/DL (14.2-18.0) L Hematocrit 37.1 % (42.0-52.0) L Mean Corpuscular Volume 90 FL (80-99) Mean Corpuscular Hemoglobin 30.0 PG (27.0-31.0) Mean Corpuscular Hemoglobin Concent 33.3 G/DL (32.0-36.0) Red Cell Distribution Width 11.8 % (11.6-14.8) Platelet Count 158 K/UL (150-450) Mean Platelet Volume 7.9 FL (6.5-10.1) Neutrophils (%) (Auto) 71.0 % (45.0-75.0) Lymphocytes (%) (Auto) 18.0 % (20.0-45.0) L Monocytes (%) (Auto) 10.3 % (1.0-10.0) H Eosinophils (%) (Auto) 0.1 % (0.0-3.0) Basophils (%) (Auto) 0.7 % (0.0-2.0) Sodium Level 134 mEQ/L (135-145) L Potassium Level 3.9 mEQ/L (3.4-4.9) Chloride Level 94 mEQ/L (98-107) L Carbon Dioxide Level 23 mEQ/L (20-30) Anion Gap 17 (5-15) H Blood Urea Nitrogen 8 mg/dL (7-23) Creatinine 0.7 mg/dL (0.7-1.2) Estimat Glomerular Filtration Rate > 60 mL/min (>60) Glucose Level 105 mg/dL (74-106) Calcium Level 8.1 mg/dL (8.6-10.2) L Objective HEENT: normocephalic, PERRL,EOMI Neck: negative JVD, no carotid bruit, carotid upstroke 2+ B/L Respiratory: clear Cardiovascular: normal S1S2, no murmurs, gallops or rubs Gastrointestinal: Non-tender, non-distended, no HSM, normal BS Genitourinary: no CVA tenderness Musculoskeletal: No murmurs, gallops or rubs. JAMEY WONG Apr 03, 2017 18:25
[2017-04-03 20:00] VITALS: BP 130/78
[2017-04-04] VITALS: BP 123/74
[2017-04-04] MEDS: Norco 7.5mg/325mg tab ORAL PRN ×2 (03:47→11:25)
[2017-04-04 04:00] VITALS: BP 114/71
[2017-04-04 07:23] LABS: BASOPHILS % (AUTO) 0.6 % (0.0-2.0); EOSINOPHILS % (AUTO) 0.5 % (0.0-3.0); LYMPHOCYTES % (AUTO) 10.9 % (20.0-45.0); MEAN CORPUSCULAR HEMOGLOBIN 29.5 PG (27.0-31.0); MEAN CORPUSCULAR VOLUME 90 FL (80-99); MONOCYTES % (AUTO) 9.2 % (1.0-10.0); NEUTROPHILS % (AUTO) 78.7 % (45.0-75.0); PLATELET COUNT 154 K/UL (150-450); RED BLOOD COUNT 3.66 M/UL (4.70-6.10); RED CELL DISTRIBUTION WIDTH 11.5 % (11.6-14.8); WHITE BLOOD COUNT 13.3 K/UL (4.8-10.8)
[2017-04-04 07:46] VITALS: BP 130/75
[2017-04-04] MEDS: Docusate 100mg cap ORAL SCH ×2 (08:06→13:00)
[2017-04-04] MEDS: oxyCONTIN 20mg tab ORAL SCH (08:07)
[2017-04-04] MEDS: celeBREX 200mg Cap **SURGERY PATIENTS ONLY ORAL SCH (08:07)
[2017-04-04] MEDS: Enoxaparin 40mg Inj SUBQ SCH (08:12)
[2017-04-04] MEDS ORDERED: Tubing IV Secondary IV ONE (10:28)
[2017-04-04 12:00] VITALS: BP 122/67
--- NOTE | 2017-04-04 12:09 | General Progress Note ---
Assessment/Plan Problem List: (1) Fall from ladder ICD Codes: W11.XXXA - Fall on and from ladder, initial encounter SNOMED: 93479065, [id number] Qualifiers: Qualified Codes: W11.XXXA - Fall on and from ladder, initial encounter (2) Intertrochanteric fracture of right hip ICD Codes: S72.141A - Displaced intertrochanteric fracture of right femur, initial encounter for closed fracture SNOMED: [id number], [id number] Qualifiers: Qualified Codes: S72.141A - Displaced intertrochanteric fracture of right femur, initial encounter for closed fracture Assessment/Plan dc planning per ortho afebrile s/p orif dc home w hh cleared by ortho f./u w ortho in 1 week Subjective Constitutional: Reports: no symptoms Allergies: Coded Allergies: No Known Allergies (Unverified , 04/01/17) Subjective pain at surgical site Objective Last 24 Hour Vital Signs Date Time Temp Pulse Resp B/P Pulse Ox O2 Delivery O2 Flow Rate FiO2 04/04/17 09:06 99.1 04/04/17 08:16 96 04/04/17 07:46 99.1 110 16 130/75 96 Room Air 04/04/17 04:46 98.6 04/04/17 04:00 98.8 85 18 114/71 97 Room Air 04/04/17 00:00 98.6 93 18 123/74 96 Room Air 04/03/17 20:00 98.7 83 18 130/78 96 Room Air 04/03/17 16:15 98.1 80 20 142/79 99 Room Air 04/03/17 12:30 97.6 78 20 128/82 97 Room Air Intake and Output 04/03/17 04/04/17 19:00 07:00 Intake Total 1720 ml 300 ml Output Total 350 ml Balance 1370 ml 300 ml Intake Oral 1720 ml 300 ml Output Urine Total 350 ml # Voids 4 2 Laboratory Tests 04/04/17 06:20: White Blood Count 13.3H, Red Blood Count 3.66L, Hemoglobin 10.8L, Hematocrit 32.7L, Mean Corpuscular Volume 90, Mean Corpuscular Hemoglobin 29.5, Mean Corpuscular Hemoglobin Concent 33.0, Red Cell Distribution Width 11.5L, Platelet Count 154, Mean Platelet Volume 8.0, Neutrophils (%) (Auto) 78.7H, Lymphocytes (%) (Auto) 10.9L, Monocytes (%) (Auto) 9.2, Eosinophils (%) (Auto) 0.5, Basophils (%) (Auto) 0.6 Height (Feet): 5 Height (Inches): 7.00 Weight (Pounds): 160 Cardiovascular: normal rate Respiratory/Chest: lungs clear Abdomen: soft Livier Jung MD Apr 04, 2017 12:09
--- NOTE | 2017-04-04 13:20 | Cardiology Report ---
APPROVED REPORT EKG Measurement Heart [id number] Normal sinus rhythm with sinus arrhythmia Normal ECG
--- NOTE | 2017-04-04 14:44 | Consultation ---
History of Present Illness General Date patient seen: Apr 04, 2017 Chief Complaint: Multiple Trauma/Fall Present Illness Allergies: Coded Allergies: No Known Allergies (Unverified , 04/01/17) Medication History Scheduled No Known Medications* (NKM - No Known Medications*), 0 ., (Reported) Patient History Healthcare decision maker Resuscitation status Advanced Directive on File No Physical Exam Last 24 Hour Vital Signs Date Time Temp Pulse Resp B/P Pulse Ox O2 Delivery O2 Flow Rate FiO2 04/04/17 12:24 99.3 04/04/17 12:00 99.3 102 20 122/67 98 Room Air 04/04/17 09:06 99.1 04/04/17 08:16 96 04/04/17 07:46 99.1 110 16 130/75 96 Room Air 04/04/17 04:00 98.8 85 18 114/71 97 Room Air 04/04/17 00:00 98.6 93 18 123/74 96 Room Air 04/03/17 20:00 98.7 83 18 130/78 96 Room Air 04/03/17 16:15 98.1 80 20 142/79 99 Room Air Intake and Output 04/03/17 04/04/17 19:00 07:00 Intake Total 1720 ml 300 ml Output Total 350 ml Balance 1370 ml 300 ml Intake Oral 1720 ml 300 ml Output Urine Total 350 ml # Voids 4 2 Laboratory Tests Test 04/04/17 06:20 White Blood Count 13.3 K/UL (4.8-10.8) H Red Blood Count 3.66 M/UL (4.70-6.10) L Hemoglobin 10.8 G/DL (14.2-18.0) L Hematocrit 32.7 % (42.0-52.0) L Mean Corpuscular Volume 90 FL (80-99) Mean Corpuscular Hemoglobin 29.5 PG (27.0-31.0) Mean Corpuscular Hemoglobin Concent 33.0 G/DL (32.0-36.0) Red Cell Distribution Width 11.5 % (11.6-14.8) L Platelet Count 154 K/UL (150-450) Mean Platelet Volume 8.0 FL (6.5-10.1) Neutrophils (%) (Auto) 78.7 % (45.0-75.0) H Lymphocytes (%) (Auto) 10.9 % (20.0-45.0) L Monocytes (%) (Auto) 9.2 % (1.0-10.0) Eosinophils (%) (Auto) 0.5 % (0.0-3.0) Basophils (%) (Auto) 0.6 % (0.0-2.0) Height (Feet): 5 Height (Inches): 7.00 Weight (Pounds): 160 Medications Current Medications Medications (Trade) Dose Ordered Sig/Catie Route PRN Reason Start Time Stop Time Status Last Admin Dose Admin Acetaminophen (Tylenol) 650 mg Q4H PRN ORAL Mild Pain/Temp > 100.5 04/02/17 07:15 05/02/17 07:14 04/02/17 08:37 Acetaminophen (Tylenol) 650 mg Q4H PRN ORAL Mild Pain (Pain Scale 1-3) 04/02/17 17:30 05/02/17 17:29 Acetaminophen (Tylenol) 650 mg Q4H PRN ORAL temp>100 04/02/17 17:30 05/02/17 17:29 Acetaminophen/ Hydrocodone Bitart ([place] 5/325) 2 tab Q6H PRN ORAL Severe Pain (Pain Scale 7-10) 04/02/17 17:30 04/09/17 17:29 04/03/17 00:27 Acetaminophen/ Hydrocodone Bitart ([place] 7.5/325) 1 ea Q4H PRN ORAL Moderate Pain (Pain Scale 4-6) 04/02/17 17:30 04/09/17 17:29 04/04/17 11:25 Celecoxib (CeleBREX) 200 mg DAILY ORAL 04/03/17 09:00 05/03/17 08:59 04/04/17 08:07 Docusate Sodium (Colace) 100 mg THREE TIMES A DAY ORAL 04/02/17 21:00 05/02/17 20:59 04/04/17 08:06 Enoxaparin Sodium (Lovenox) 40 mg DAILY SUBQ 04/03/17 09:00 04/13/17 08:59 04/04/17 08:12 Ferrous Sulfate (Feosol) 325 mg THREE TIMES A DAY ORAL 04/02/17 21:00 05/02/17 20:59 04/04/17 08:07 Hydromorphone HCl (Dilaudid) 1 mg Q4H PRN SUBQ Mild Pain (Pain Scale 1-3) 04/02/17 17:30 04/09/17 17:29 04/03/17 01:57 Hydromorphone HCl (Dilaudid) 2 mg Q3H PRN SUBQ Severe Pain (Pain Scale 7-10) 04/02/17 17:30 04/09/17 17:29 Hydromorphone HCl (Dilaudid) 2 mg Q4H PRN SUBQ Moderate Pain (Pain Scale 4-6) 04/02/17 17:30 04/09/17 17:29 Magnesium Hydroxide (Mom) 30 ml DAILYPRN PRN ORAL Constipation 04/02/17 17:30 05/02/17 17:29 Oxycodone HCl (OxyCONTIN) 20 mg EVERY 12 HOURS ORAL 04/02/17 21:00 04/09/17 20:59 04/04/17 08:07 Assessment/Plan Assessment/Plan (1) Right Hip pain (2) Right Hip Fracture (3) S/p ORIF Seen dictated JU CHENEY Apr 04, 2017 14:44
[2017-04-04] MEDS ORDERED: PERCOCET 7.5-31 EACH ORAL (15:03)
--- NOTE | 2017-04-04 21:15 | Consultation ---
DATE OF CONSULTATION: 04/04/2017 PAIN MANAGEMENT CONSULTATION: CONSULTING PHYSICIAN: Marisol Pimentel M.D. REFERRING PHYSICIAN: Livier Jung M.D. CHIEF COMPLAINT: Right hip pain. HISTORY OF PRESENT ILLNESS: The patient is a 46-year-old male, who is being seen on the Med/Surg floor of [facility] for initial comprehensive pain management consultation. The patient is Indonesian speaking, is being interpreted at this time. His family members at bedside. The patient reports that he had a fall off a ladder and landed on his hip. He was found to have a fracture status post open reduction and internal fixation by Dr. Gregory. He will be discharged home later today. We were consulted, so that the patient would have adequate pain control when discharged home due to patient low pain threshold. PAST MEDICAL HISTORY: Denies. PAST SURGICAL HISTORY: Finger laceration on the left hand. MEDICATIONS: No known medications as an outpatient. ALLERGIES: No known drug allergies. SOCIAL HISTORY: Smokes marijuana. He occasionally drinks beer and denies IV drug abuse. REVIEW OF SYSTEMS: Denies rash, fever, chills, sweating, dizziness, drowsiness, blurred vision, sore throat, or change in weight. No shortness of breath or chest pain. No nausea, vomiting, diarrhea, or blood in the stool or urine. No bowel or bladder incontinence. No dysuria. He is complaining of right hip pain. PHYSICAL EXAMINATION: GENERAL: Alert, awake, and oriented. VITAL SIGNS: Blood pressure 122/67, heart is 102, oxygen 98%, respirations 20, and temperature 99.3 degrees Fahrenheit. Height is 5 feet 7 inches and weight is 160 pounds. HEENT: PERRLA. NECK: Range of motion is full in all directions. No tenderness to paracervical muscles. No adenopathy. LUNGS: Clear. HEART: Regular. ABDOMEN: Benign. BACK: Range of motion is decreased in flexion and extension with no tenderness to paraspinous and trapezius muscles. EXTREMITIES: Upper extremity range of motion is full in all directions. Motor is intact. No cyanosis. No clubbing. No edema. Sensory is intact. Reflexes are normal. No adenopathy. Lower extremity motion is decreased due to the patient's condition with bandages noted on the right hip with tenderness to palpation. No cyanosis. No clubbing. No edema noted. Sensory is intact. Reflexes are normal. No adenopathy. ASSESSMENT AND PLAN: This is a 46-year-old male with right hip fracture, right hip pain, status post open reduction and internal fixation. The patient will be continued on current medications. A prescription for Percocet 7.5/325 mg one tablet every 4 to 6 hours 30 tabs when patient will be discharged. He was advised to follow up with his primary care physician and surgeon when discharged. The patient was discussed with Dr. Pimentel and Dr. Pimentel concurred. We will follow the patient. Thank you very much for the courtesy of this consultation. Marisol Pimentel M.D. BRYCE Yanes DR: Adam JOB#: [id number] CC: FREDERIC
--- NOTE | 2017-04-05 09:46 | Diagnostic Imaging Report ---
Indication: Right femur fracture/intraoperative imaging Technique: Intraoperative imaging of the right hip with 6 fluoroscopically captured images. Comparison: 04/01/17 Findings: Limited intraoperative imaging of the right hip demonstrates open reduction and internal fixation of right proximal femur fracture with an intramedullary nail and femoral neck compression screw. Impression: Limited intraoperative imaging of the right hip.
--- NOTE | 2017-04-07 09:58 | Discharge Summary ---
Discharge Summary Hospital Course Date of Admission Apr 01, 2017 at 15:18 Date of Discharge Apr 04, 2017 at 15:00 Admitting Diagnosis hip fracture ZACK Geiger is a 46 year old male who was admitted on Apr 01, 2017 at 15:18 for Hip Fracture Hospital Course dc summary#[id number] Discharge Medications Continued Medications: No Known Medications* (NKM - No Known Medications*) . 0 ., 0 Refills Oxycodone Hcl/Acetaminophen 7.5-325 Mg (Percocet 7.5-325 Mg Tablet) 1 Each Tablet 1 TAB ORAL Q4H PRN for For Pain, TAB Discharge Condition Upon Discharge: stable Discharge Disposition Patient was discharged to Home with Home Health(06) Discharge Diagnoses: Discharge Instructions Discharge Instructions Special Instructions I have been assigned to complete a D/C Summary on this account. I was not involved in the patient management Chiquita Mora NP (Vanchtein) Apr 07, 2017 09:58
--- NOTE | 2017-04-08 01:30 | Discharge Summary 2 SIG ---
DATE OF ADMISSION: 04/01/2017 DATE OF DISCHARGE: 04/04/2017 REASON FOR ADMISSION: The patient is a 46 years old male, sustained mechanical fall from the ladder and came to emergency room complaining of the right hip pain. He denied any loss of consciousness, any head injury, any dizziness or black out. He came to emergency department because of the severe right hip pain, sharp, and nonradiating. The patient was unable to bear weight. Workup in the emergency room revealed right hip fracture. X-ray of the right femur revealed right intertrochanteric fracture, nondisplaced pelvic fracture, not excludable. Subsequently, CT of the pelvis was done, which revealed right femoral intertrochanteric fracture, but no other evidence of acute injury. Orthopedic surgeon was consulted from the emergency department and the patient admitted for further management. Vital signs were stable. Troponin negative. EKG showed normal sinus rhythm. No acute ischemic changes. ADMITTING DIAGNOSES: 1. Status post mechanical fall. 2. Right hip intertrochanteric fracture. HOSPITAL STAY: The patient admitted. The patient started on IV fluids, pain management provided. Orthopedic surgeon seen and evaluated the patient. Scheduled the patient for open reduction and internal fixation of the right hip fracture. Risks and benefits of surgery were explained to the patient. The patient consented to the surgery. Subsequently, on 04/03/2017 the patient undergone open reduction and internal fixation of right hip comminuted intertrochanteric fracture. Course of recovery was uneventful. The patient was afebrile. The patient was working as a physical therapist and able to ambulate. Wound clean. No purulent drainage. The patient tolerated diet, voided freely, had bowel movement. The patient was stable for discharge. Livestock Commission Agent followed the patient because the patient had apparently some tachycardia, however, he recommended to keep the patient well hydrated and indicated no need for AV flori agent at this time. Surgeon cleared the patient for discharge. Vital signs were stable prior to discharge. DISCHARGE DIAGNOSES: 1. Status post mechanical fall. 2. Right hip comminuted intertrochanteric fracture. 3. Status post open reduction and internal fixation of right hip fracture. 4. Sinus tachycardia, resolved. DISCHARGE MEDICATIONS: See medication reconciliation list. DISCHARGE INSTRUCTIONS: The patient discharged home with home health services PT. Follow up with the surgeon in one week. Livier Jung M.D. I have been assigned to dictate discharge summary on this account and I was not involved in the patient's management. Chiquita Mora (vanchtein) NJeannine DR: LAURA JOB#: [id number] CC:
== END 2017-04-04 15:00 | disposition home health service (06) | DRG 308 ==
LOC: EDBD 13:34 → EMR 15:00 → 3E 15:18 → EDBEDREQ 17:02
PROC: 0QS604Z Reposition Right Upper Femur with Internal Fixation Device, Open Approach (ICD-10-PCS; principal; 2017-04-02 16:30)
DX: S72.141A Displaced intertrochanteric fracture of right femur, initial encounter for closed fracture (principal); D72.829 Elevated white blood cell count, unspecified; F12.10 Cannabis abuse, uncomplicated; R00.0 Tachycardia, unspecified; W11.XXXA Fall on and from ladder, initial encounter; Y92.019 Unspecified place in single-family (private) house as the place of occurrence of the external cause
CPT/HCPCS: 36415; 71010; 72170; 72192; 76001; 80048; 80053; 85025; 85610; 85730; 93005; 94003; 94150; J3490